=== PATIENT | male | born 1985 | race Caucasian/White ===

== ENCOUNTER 2023-09-17 17:42 | Emergency (ER) | payer MEDICAID, OTHER ==
[~2023-09-17] VITALS: Ht 170.2 cm; Wt 74.5 kg
[2023-09-17 18:09] VITALS: BP 165/89; PULSE 80; RESP 18; O2SAT 98
== END 2023-09-17 20:39 | disposition left against medical advice (07) ==
LOC: EDBD 17:42 → ER 17:42
DX: F32.9 Major depressive disorder, single episode, unspecified (principal); R45.851 Suicidal ideations; N18.6 End stage renal disease; Z99.2 Dependence on renal dialysis